=== PATIENT | male | born 1940 | race Two or more races ===

== ENCOUNTER 2019-11-21 03:08 | Inpatient (IN) | payer OTHER ==
[~2019-11-21] VITALS: Ht 175.3 cm; Wt 85.3 kg
[2019-11-21 03:54] LABS: Basophils # (auto) 0 10 ^3/uL (0-0.2); Basophils % (auto) 0.7 % (0.0-2.0); Eosinophils # (auto) 0.1 10 ^3/uL (0-0.8); Eosinophils % (auto) 1.9 % (0.0-7.0); Hematocrit 41.1 % (41.0-53.0); Hemoglobin 13.6 g/dL (13.5-17.5); Lymphocytes # (auto) 2.6 10 ^3/uL (0.4-5.4); Lymphocytes % (auto) 43.4 % (10.0-50.0); Mean Corpuscular Hemoglobin 29.5 pg (28.0-32.0); Mean Corpuscular Volume 89.7 fL (80.0-100.0); Monocytes # (auto) 0.7 10 ^3/uL (0-1.3); Monocytes % (auto) 11.1 % (0.0-12.0); Neutrophils # (auto) 2.6 10 ^3/uL (1.6-8.6); Neutrophils % (auto) 42.9 % (37.0-80.0); Platelet Count (auto) 164 10^3/uL (140-450); Red Blood Cells 4.59 10^6/uL (4.5-5.90); Red Cell Distribution Width 14.4 % (11.8-14.3); White Blood Cell 6.1 10^3/uL (4.4-10.8)
[2019-11-21] MEDS ORDERED: MORPHINE SULF INJ 2 MG/ML SYRINGE 1ML IV ONE (04:00)
[2019-11-21] MEDS ORDERED: ASPirin 81 mg TAB PO ONE (04:00)
[2019-11-21] MEDS ORDERED: ONDANSETRON HCL 4 MG/2 ML VIAL IV ONE (04:00)
[2019-11-21 04:09] LABS: Albumin 3.4 g/dL (3.4-5.0); Anion Gap 7 (5-15); Blood Urea Nitrogen 24 mg/dL (7-18); Calcium 8.9 mg/dL (8.5-10.1); Carbon Dioxide 24 mmol/L (21-32); Chloride 110 mmol/L (98-107); Glucose 95 mg/dL (74-106); Magnesium 2.4 mg/dL (1.6-2.6); Potassium 3.8 mmol/L (3.5-5.1); Sodium 141 mmol/L (136-145)
[2019-11-21 04:15] LABS: Alanine Aminotransferase 50 U/L (16-61); Alkaline Phosphatase 72 U/L (45-117); Aspartate Aminotransferase 34 U/L (15-37); BUN/Creatinine Ratio 24.7; Bilirubin, Total 0.5 mg/dL (0.2-1.0); GFR African American 97 mL/min; GFR Non-African American 80 mL/min
[2019-11-21 04:21] LABS: INR 1.03 (0.9-1.15); Partial Thromboplastin Time 26.2 sec (23.0-31.2)
[2019-11-21] MEDS ORDERED: ATROPINE SULF 1 MG/10ml SYR IV ONE (05:00)
[2019-11-21] MEDS ORDERED: ATROPINE SULFATE 1 MG/1 ML VIAL ONE (05:03)
[2019-11-21] MEDS ORDERED: CALCIUM GLUC 4.65meq/50ml D5AE 50 ML IV ONE (05:15)
[2019-11-21 06:13] LABS: Urine Bacteria FEW /hpf (None Seen); Urine Blood Negative /uL (Negative); Urine Mucus FEW (None Seen); Urine Specific Gravity 1.014 (1.001-1.035); Urine WBC 1 /hpf (0 - 3)
[2019-11-21] MEDS ORDERED: DOPamine 1600MCG/ML D5W 250 ML IV SCH (06:36)
[2019-11-21] MEDS ORDERED: IOHEXOL 350 MG/ML 100ML IJ ONE ×2 (06:43→17:00)
[2019-11-21] MEDS ORDERED: ONDANSETRON HCL 4 MG/2 ML VIAL IV PRN (06:45)
[2019-11-21] MEDS ORDERED: MORPHINE SULF INJ 2 MG/ML SYRINGE 1ML IV PRN (07:00)
[2019-11-21] MEDS ORDERED: NITROGLYCERIN 0.4 MG SL TAB SL PRN (07:00)
[2019-11-21] MEDS: D5W/SOD CHLO 0.9% 1,000 ML IV SCH ×2 (07:29→20:05)
[2019-11-21] MEDS: ENOXAPARIN SOD 40 MG/0.4 ML SYRINGE SC SCH (10:00)
[2019-11-21] MEDS ORDERED: IODIXANOL 320MG/ML 100ML BTL IV ONE (10:03)
[2019-11-21] MEDS ORDERED: LIDOCAINE 2%HCL (LOCAL ANESTH.) INJ 20ML MDV ONE ×2 (10:03→12:53)
[2019-11-21] MEDS ORDERED: SODIUM CHL 0.9% 0 ML ONE (10:11)
[2019-11-21] MEDS ORDERED: ANGIOMAX 250 MG VIAL IV ONE (10:11)
[2019-11-21] MEDS ORDERED: MIDAZOLAM HCL 1MG/1ML-2 ML VIAL ONE ×2 (10:11→12:53)
[2019-11-21] MEDS ORDERED: fentaNYL CITRATE 100 MCG/2 ML VL ONE ×2 (10:11→12:53)
[2019-11-21] MEDS ORDERED: ATROPINE SULF 1 MG/10ml SYR ONE (10:12)
[2019-11-21] MEDS ORDERED: LEVOTHYROXINE SODIUM 25 MCG TAB PO ONE (12:30)
[2019-11-21] MEDS ORDERED: VANCOMYCIN HCL 1000 MG VL ONE (12:52)
[2019-11-21] MEDS ORDERED: VANCOMYCIN 1GM/250ML 250 ML IV ONE (12:53)
[2019-11-21] MEDS ORDERED: diphenhdrAMINE HCL 50 MG/1 ML VL ONE (12:53)
[2019-11-21 12:59] LABS: Cholesterol 150 mg/dL (< 200); HDL Cholesterol 47 mg/dL (40-59); LDL Cholesterol 106 mg/dL (< 100); Triglycerides 57 mg/dL (< 150)
[2019-11-21] MEDS ORDERED: HYDROcodone-ACET 5/325MG TAB PO PRN (14:15)
[2019-11-21] MEDS ORDERED: ACETAMINOPHEN 325 MG TAB PO PRN (14:15)
--- NOTE | 2019-11-21 14:20 | NUR ---
Med held- lovonox held for pacemaker procedure per DR Oconnor
--- NOTE | 2019-11-21 15:48 | NUR ---
LOVENOX AND ASPIRIN SPOKE TO MD CALLE REGARDING ADMINISTRATION OF ASPIRIN AND LOVENOX, PER MD CALLE, HOLD ASPIRIN AND LOVENOX TODAY AND TOMORROW MORNING. PER MD CALLE, IF [facility] CALLS, PATIENT IS NOT STABLE FOR TRANSFER.
--- NOTE | 2019-11-21 16:18 | NUR ---
Telemetry admit from [facility] COORDINATOR MATTHIEU OSBORNE admitted to Telemetry unit after SBAR received. Patient oriented to CIRILO ARTHUR RN primary RN, unit, room, bed, and unit policies regarding patient care and visiting hours. Patient now on continuous telemetry monitoring, tele box # [id number]. Patient weighed by bedscale and encouraged to call if they need something. All questions and concerns addressed, patient verbalized understanding. Patient heart cath access clean, dry, and intact. No hematoma or hemorrhage noted. Patient also have a L Upper chest pacemaker with dressing, clean, dry, and intact.
--- NOTE | 2019-11-21 16:30 | NUR ---
Synthroid tablets Per [facility] laborer nurse, medication was not given because they didn't have lab references indicating patient needed medication. Medication was due at 1230 therefore it is too close to next dose due to give now. Will cont to monitor patient.
[2019-11-21 16:44] VITALS: BP 126/75
[2019-11-21 17:00] VITALS: BP 126/75
--- NOTE | 2019-11-21 19:06 | NUR ---
Endorsed report Endorsed care to night RUFUS Spencer. Tj aware of holding aspirin and lovenox.
--- NOTE | 2019-11-21 20:00 | NUR ---
Opening Shift Note Assumed care of patient, awake and alert. No S/S of distress/SOB or pain. Instructed on POC and to call for assist PRN, will continue to monitor for changes Q1hr and PRN.
--- NOTE | 2019-11-21 21:00 | NUR ---
INCISIONS CLEAN DRY AND INTACT. ICE PACK APPLIED TO SHOULDER. PATIENT TOLERATING WELL. WILL CONTINUE TO MONITOR.
[2019-11-21 22:00] VITALS: BP 95/63
[2019-11-21] MEDS ORDERED: ATORVASTATIN 20 MG TAB PO SCH (22:00)
[2019-11-22 05:00] VITALS: BP 109/62
[2019-11-22 06:03] LABS: Basophils # (auto) 0 10 ^3/uL (0-0.2); Basophils % (auto) 0.3 % (0.0-2.0); Eosinophils # (auto) 0 10 ^3/uL (0-0.8); Eosinophils % (auto) 0.3 % (0.0-7.0); Hematocrit 39.3 % (41.0-53.0); Hemoglobin 12.9 g/dL (13.5-17.5); Lymphocytes # (auto) 1.5 10 ^3/uL (0.4-5.4); Lymphocytes % (auto) 18.4 % (10.0-50.0); Mean Corpuscular Hemoglobin 29.5 pg (28.0-32.0); Mean Corpuscular Hgb Conc. 32.9 g/dL (32.0-36.0); Mean Corpuscular Volume 89.7 fL (80.0-100.0); Monocytes # (auto) 0.9 10 ^3/uL (0-1.3); Neutrophils # (auto) 5.7 10 ^3/uL (1.6-8.6); Nucleated Red Blood Cells % 0.1 %; Platelet Count (auto) 133 10^3/uL (140-450); Red Blood Cells 4.38 10^6/uL (4.5-5.90); Red Cell Distribution Width 14.1 % (11.8-14.3); White Blood Cell 8.2 10^3/uL (4.4-10.8)
[2019-11-22 06:24] LABS: Potassium 3.8 mmol/L (3.5-5.1)
[2019-11-22 06:29] LABS: Calcium 8.7 mg/dL (8.5-10.1)
[2019-11-22] MEDS ORDERED: LEVOTHYROXINE SODIUM 25 MCG TAB PO SCH (07:00)
[2019-11-22] MEDS: ENOXAPARIN SOD 40 MG/0.4 ML SYRINGE SC SCH (07:57)
--- NOTE | 2019-11-22 08:23 | NUR ---
REQUESTS TO USE BR. ARM SLING APPLIED. PEREZ DISCONTINUED. IV HEP LOCKED.INSTRUCTIONS NOT TO TWIST TORSO. STAND BY ASSIST PROVIDED. TOLERATES UP TO BR WELL, HAS BM.
[2019-11-22 09:16] VITALS: BP 120/69
[2019-11-22] MEDS ORDERED: ASPirin 81 mg TAB PO SCH (10:00)
[2019-11-22] MEDS ORDERED: DOXYCYCLINE 100 MG TAB/CAP PO SCH (10:00)
--- NOTE | 2019-11-22 10:14 | NUR ---
TOLERATED UP TO BR. AV PACED AT RATE OF 80 WHILE UP TO HAVE BM. DOXYCYCLINE ORDERED GIVEN PO. DR. CALLE ROUNDS. PLANNING FOR DC HOME TODAY.
[2019-11-22 13:00] VITALS: BP 126/74
[2019-11-22 14:07] VITALS: BP 120/69
--- NOTE | 2019-11-22 14:42 | NUR ---
BOTH IV'S REMOVED. TELE MONITOR RETURNED. DC INSTRUCTIONS REVIEWED WITH BOTH PATIENT AND HIS OVER THE PHONE. REINFORCED IMPORTANCE OF KEEPING DSG DRY NO SHOWERS OR BATH UNTIL SEEING [facility] [employer] HELPER IN ONE WEEK. INSTRUCTED TO USE ARM BRACE AND NO TWISTING AND BENDING FOR NEXT 2 DAYS. INSTRUCTIONS PRINTED IN [place]. CALL TO [facility] TO MAKE F/U APPOINTMENTS. ON HOLD IN EXCESS OF 30 MIN.
--- NOTE | 2019-11-22 14:53 | NUR ---
REPEAT CALL TO [facility] WITH REPORTED WAIT TIME OF 45 TO 50 MIN TO SPEAK WITH STAFF FOR MAKING AN APPOINTMENT. PATIENT AND INSTRUCTED ON IMPORTANCE OF F/U APPOINTMENT WITH MANAGEMENT TRAINEE PROGRAM STORES AND PRIMARY MD FOR SYNTHROID MED.
== END 2019-11-22 15:15 | disposition home or self-care (01) | DRG 243 ==
LOC: EDBD 03:08 → ER 03:13 → TELE 03:14 → TELE-WESTW 16:20
PROVIDERS: ADMIT Nurse Practitioner; ATTEND Family Medicine
PROC: 0JH606Z Insertion of Pacemaker, Dual Chamber into Chest Subcutaneous Tissue and Fascia, Open Approach (ICD-10-PCS; principal; 2019-11-21)
PROC: 02HK3JZ Insertion of Pacemaker Lead into Right Ventricle, Percutaneous Approach (ICD-10-PCS; 2019-11-21)
PROC: 02H63JZ Insertion of Pacemaker Lead into Right Atrium, Percutaneous Approach (ICD-10-PCS; 2019-11-21)
PROC: B2111ZZ Fluoroscopy of Multiple Coronary Arteries using Low Osmolar Contrast (ICD-10-PCS; 2019-11-21)
PROC: 4A023N7 Measurement of Cardiac Sampling and Pressure, Left Heart, Percutaneous Approach (ICD-10-PCS; 2019-11-21)
PROC: B2151ZZ Fluoroscopy of Left Heart using Low Osmolar Contrast (ICD-10-PCS; 2019-11-21)
DX: I49.5 Sick sinus syndrome (principal); I44.2 Atrioventricular block, complete; I25.10 Atherosclerotic heart disease of native coronary artery without angina pectoris; E03.9 Hypothyroidism, unspecified; E78.5 Hyperlipidemia, unspecified; E78.00 Pure hypercholesterolemia, unspecified; I95.89 Other hypotension; R79.1 Abnormal coagulation profile; I10 Essential (primary) hypertension
CPT/HCPCS: 36415; 71045; 80048; 80053; 80061; 81001; 83735; 84443; 84484; 85025; 85379; 85610; 85730; 93005; 93306; 93970; 96365; 96375; 99152; 99153; C1751; C1785; G0378; J0461; J0610; J2250; J2405; J7042; Q9967